=== PATIENT | female | born 1955 | race Asian ===

== ENCOUNTER 2017-08-28 18:23 | Inpatient (IN) | payer MEDICAID ==
[~2017-08-28] VITALS: Ht 165.1 cm; Wt 61.7 kg
[2017-08-28 18:27] VITALS: BP_SYST 168
[2017-08-28 19:03] LABS: BILIRUBIN,URINE NEGATIVE (NEGATIVE); BLOOD, URINE NEGATIVE (NEGATIVE); CLARITY/URINE CLEAR (CLEAR); COLOR,URINE YELLOW (YELLOW); GLUCOSE,URINE NEGATIVE (NEGATIVE); KETONES,URINE NEGATIVE (NEGATIVE); LEUKOCYTE ESTERASE ,URINE NEGATIVE (NEGATIVE); NITRITE, URINE NEGATIVE (NEGATIVE); PH,URINE 6.5 (5.0-8.0); PROTEIN URINE NEGATIVE (NEGATIVE); UROBILINOGEN,URINE 0.2 (0.2-1.0)
[2017-08-28 19:22] LABS: BASOPHILS # (AUTO) 0.1 K/uL (0.0-0.2); BASOPHILS % (AUTO) 1.8 % (0.0-2.0); EOSINOPHILS # (AUTO) 0.2 K/uL (0.0-0.4); EOSINOPHILS % (AUTO) 5.4 % (0.0-4.0); HEMOGLOBIN 10.4 g/dL (12.0-16.0); LYMPHOCYTES % (AUTO) 45.7 % (20.5-51.5); MEAN CORPUSCULAR HEMOGLOBIN 29 pg (27-31); MEAN CORPUSCULAR HGB CONC 33 % (32-36); MEAN CORPUSCULAR VOLUME 88 fL (79.0-98.0); MONOCYTES # (AUTO) 0.6 K/uL (0.0-1.0); MONOCYTES % (AUTO) 12.5 % (1.7-9.3); NEUTROPHILS # (AUTO) 1.5 K/uL (1.8-7.7); NEUTROPHILS % (AUTO) 34.6 % (40.0-70.0); PLATELET COUNT (AUTO) 290 K/uL (130-430); RED BLOOD CELL COUNT(AUTO) 3.62 MIL/uL (4.2-6.2); RED CELL DISTRIBUTION WIDTH 13.2 % (9.0-15.0); WHITE BLOOD COUNT (AUTO) 4.4 K/uL (4.8-10.8)
[2017-08-28 19:35] LABS: CALCIUM 9.2 mg/dL (8.4-11.0); POTASSIUM 3.6 mmol/L (3.5-5.1)
[2017-08-28 19:39] LABS: PROTHROMBIN TIME 10.5 SECS (9.5-12.5)
[2017-08-28 19:40] LABS: ALBUMIN 3.5 g/dL (3.4-4.8); TOTAL BILIRUBIN 0.3 mg/dL (0.0-1.0)
[2017-08-28] MEDS ORDERED: MECLIZINE HCL 25 MG TABLET (ANITVERT) PO ONE (20:15)
[2017-08-28] MEDS ORDERED: ASPIRIN 81 MG TAB.CHEW PO ONE (22:15)
[2017-08-28] MEDS ORDERED: NACL 0.9% 1,000 ML IV ONE (22:15)
[2017-08-28] MEDS ORDERED: CALC-226 PO (22:45)
[2017-08-28] MEDS ORDERED: ZOLPIDEM TARTRATE 5 MG TABLET PO PRN (22:45)
[2017-08-28] MEDS ORDERED: ACETAMINOPHEN 325 MG TABLET PO PRN (22:45)
[2017-08-28] MEDS ORDERED: FENO160 PO (22:45)
[2017-08-28] MEDS ORDERED: TRAM50TA92 PO (22:45)
[2017-08-28] MEDS ORDERED: DOCU-144 PO (22:45)
[2017-08-28] MEDS ORDERED: AMLO1CAP56 PO (22:45)
[2017-08-28] MEDS ORDERED: MORPHINE 2 MG/ML INJ. SYRINGE IVP PRN ×2 (22:45)
[2017-08-28] MEDS ORDERED: CARV25TA55 PO (22:45)
[2017-08-28] MEDS ORDERED: DOCUSATE SODIUM 100 MG CAPSULE PO PRN (22:45)
[2017-08-28] MEDS ORDERED: ONDANSETRON HCL 4 MG/2 ML VIAL IVP PRN (22:45)
[2017-08-28] MEDS ORDERED: OMEP40CA33 PO (22:45)
[2017-08-28] MEDS ORDERED: POTASSIUM CHLORIDE 20 MEQ TAB.PRT.SR PO PRN (22:45)
[2017-08-28] MEDS ORDERED: ASA81 PO (22:45)
[2017-08-28] MEDS ORDERED: MAGNESIUM SULFATE 50 ML IV PRN (22:45)
[2017-08-28] MEDS ORDERED: ARA20 PO (22:45)
[2017-08-28] MEDS ORDERED: LORazepam 2 MG/ML VIAL IVP PRN (22:45)
[2017-08-28 22:54] VITALS: BP_SYST 162
[2017-08-28] MEDS ORDERED: HYDROCHLOROTHIAZIDE 25 MG TABLET (HCTZ) PO ONE (23:15)
[2017-08-28] MEDS ORDERED: FLU VACC QS 2017-18(36MOS+)/PF 0.5 ML/SYR SYRINGE I.M. PRN (23:30)
[2017-08-28] MEDS: NACL 0.9% 1,000 ML IV SCH (23:48)
[2017-08-29 00:14] VITALS: BP_SYST 162
[2017-08-29 04:05] VITALS: BP_SYST 129
[2017-08-29 07:10] LABS: BASOPHILS % (AUTO) 0.5 % (0.0-2.0); EOSINOPHILS # (AUTO) 0.3 K/uL (0.0-0.4); EOSINOPHILS % (AUTO) 7.1 % (0.0-4.0); HEMATOCRIT 31.4 % (36-48); HEMOGLOBIN 10.5 g/dL (12.0-16.0); LYMPHOCYTES # (AUTO) 1.8 K/uL (1.0-5.5); MEAN CORPUSCULAR HEMOGLOBIN 29 pg (27-31); MEAN CORPUSCULAR HGB CONC 34 % (32-36); MEAN CORPUSCULAR VOLUME 88 fL (79.0-98.0); MONOCYTES # (AUTO) 0.5 K/uL (0.0-1.0); MONOCYTES % (AUTO) 11.8 % (1.7-9.3); NEUTROPHILS # (AUTO) 1.4 K/uL (1.8-7.7); NEUTROPHILS % (AUTO) 33.6 % (40.0-70.0); PLATELET COUNT (AUTO) 295 K/uL (130-430); RED BLOOD CELL COUNT(AUTO) 3.58 MIL/uL (4.2-6.2); RED CELL DISTRIBUTION WIDTH 13.4 % (9.0-15.0)
[2017-08-29 07:28] LABS: CALCIUM 8.3 mg/dL (8.4-11.0); CREATININE 0.97 mg/dL (0.55-1.30); POTASSIUM 3.1 mmol/L (3.5-5.1)
[2017-08-29 08:00] VITALS: BP_SYST 144
[2017-08-29] MEDS: NACL 0.9% 1,000 ML IV SCH (08:40)
[2017-08-29] MEDS ORDERED: HYDROCHLOROTHIAZIDE 25 MG TABLET (HCTZ) PO SCH (09:00)
[2017-08-29] MEDS ORDERED: HEPARIN SODIUM,PORCINE 5000 UNITS/ML VIAL SUBCUT SCH (09:00)
[2017-08-29] MEDS ORDERED: MECL-123 PO (10:19)
[2017-08-29 10:36] VITALS: BP_SYST 126
[2017-08-29 11:46] VITALS: BP_SYST 134
[2017-08-29 13:22] LABS: CALCIUM 8.9 mg/dL (8.4-11.0); CREATININE 0.98 mg/dL (0.55-1.30); POTASSIUM 3.6 mmol/L (3.5-5.1)
[2017-08-29 13:53] VITALS: BP_SYST 143
== END 2017-08-29 14:06 | disposition home or self-care (01) | DRG 111 ==
LOC: SED 18:23 → STU 22:19
PROVIDERS: ADMIT General Practice; ATTEND General Practice
DX: R42 Dizziness and giddiness (principal); I10 Essential (primary) hypertension; K21.9 Gastro-esophageal reflux disease without esophagitis; E87.6 Hypokalemia; E78.5 Hyperlipidemia, unspecified; M06.9 Rheumatoid arthritis, unspecified; Z96.651 Presence of right artificial knee joint; Z86.73 Personal history of transient ischemic attack (TIA), and cerebral infarction without residual deficits; Z98.2 Presence of cerebrospinal fluid drainage device; Z79.899 Other long term (current) drug therapy
CPT/HCPCS: 36415; 70450-TC; 71010; 80048; 80053; 81003; 83690-TC; 83735-TC; 84484; 85025; 85610-TC; 85730-TC; 93005; 99285; J1644; J7030; J8597; Q2037